=== PATIENT | female | born 1980 | race African-American/Black ===

== ENCOUNTER 2019-10-09 10:59 | Emergency (ER) | payer OTHER, BC, SELFPAY ==
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
[2019-10-09 11:09] VITALS: BP 146/102; PULSE 97; RESP 18; TEMP 36.7; O2SAT 100
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
[2019-10-09] MEDS: CYCLOBENZAPRINE HCL 10 MG TABLET PO (14:26)
[2019-10-09] MEDS: KETOROLAC (*BKC) 60 MG/2 ML VIAL IM (14:26)
== END 2019-10-09 14:35 | disposition home or self-care (01) ==
PROVIDERS: Emergency Provider Nurse Practitioner
DX: S66.912A Strain of unspecified muscle, fascia and tendon at wrist and hand level, left hand, initial encounter (principal); S16.1XXA Strain of muscle, fascia and tendon at neck level, initial encounter; S39.012A Strain of muscle, fascia and tendon of lower back, initial encounter; V49.50XA Passenger injured in collision with unspecified motor vehicles in traffic accident, initial encounter
CPT/HCPCS: 72040; 72100; 72170; 73110; 96372; 99284; A9270; J1885

== ENCOUNTER 2021-01-12 23:29 | Emergency (ER) | payer BC, SELFPAY ==
[2021-01-13 00:03] VITALS: BP 148/106; PULSE 89; RESP 18; TEMP 37.7; O2SAT 100
--- NOTE | 2021-01-13 02:56 | ED.SKABFB ---
HPI - Skin/Abscess/Foreign Bdy General Chief complaint: Skin/Abscess/Foreign Body Stated complaint: tampon stuck in me Time Seen by Provider: 01/13/21 02:10 Source: patient and RN notes reviewed Mode of arrival: ambulatory Limitations: no limitations History of Present Illness HPI narrative: This is a 40 year old female who presents for evaluation of possible retained tampon. PAtient reports she developed right lower abdominal pain yesterday. She noticed foul vaginal odor. She reports she felt what seemed to be a tampon in her vagina . She denies vaginal discharge or fever. She reports chills and nausea. Related Data Home Medications Medication Instructions Recorded Confirmed cetirizine [Zyrtec] 10 mg PO DAILY 10/09/19 Allergies Allergy/AdvReac Type Severity Reaction Status Date / Time iodine Allergy Unknown UNKNOWN Verified 07/22/18 08:44 Shrimp Allergy Unknown Uncoded 07/22/18 08:44 Review of Systems Review of Systems: All systems reviewed & are unremarkable except as noted in HPI and below Constitutional: Constitutional: Denies chills, Denies fever(s) and Reports weakness Gastrointestinal: Gastrointestinal: Reports abdominal pain, Denies diarrhea, Reports nausea and Denies vomiting Genitourinary: Genitourinary: Denies hematuria and Denies vaginal discharge Musculoskeletal: Musculoskeletal: Denies back pain PMF Past Medical History Medical History (Updated 01/13/21 @ 08:46 by Lee Ann Davalos MD) Fibroid, uterine Surgical History Surgical History (Updated 01/13/21 @ 02:57 by Lee Ann Davalos MD) H/O myomectomy Social History Social History (Updated 01/13/21 @ 02:57 by Lee Ann Davalos MD) Smoking status: Never smoker Gender identity (if verbalized by the patient): Female Exam Const: General: no acute distress and alert Orientation/consciousness: patient oriented x3 Eyes: EOM: EOMs intact bilaterally Resp: Effort & Inspection: normal respiratory effort and no retractions Auscultation: clear to auscultation bilaterally Cardio: Rate: regular rate Rhythm: regular rhythm GI: GI Palp: Yes Soft to palpation, Yes Tenderness to palpation present (GI) (RLQ), Yes Guarding due to palpation present (GI) and No Rigid due to palpation Auscultation: normal bowel sounds : Other: no foreign body. No discharge Skin: General skin exam: normal color Rashes: no rashes Neuro: General: patient oriented x3, moves all extremities and CN's II-XI intact bilaterally Course Reevaluation(s) Reevaluation #1: Patient is refusing to have labs drawn. I discussed that she is having significant amount of right lower abdominal tenderness and she needs to have evaluated to rule out surgical issue like appendicitis. I discussed that if this is not diagnosed early it can lead to shock , , complicated surgery or health. She states she has to find someone to take care of her kids. I stressed that she needs to be evaluated. She still wants to leave AMA. She undertands the risk . Date: 01/13/21 Time: 03:00 Vital Signs Vital signs: Vital Signs Temperature 99.8 F H 01/13/21 00:03 Pulse Rate 89 01/13/21 00:03 Respiratory Rate 18 01/13/21 00:03 Blood Pressure 148/106 H 01/13/21 00:03 Pulse Oximetry 100 01/13/21 00:03 Temperature 98.6 F 01/13/21 02:57 Pulse Rate 78 01/13/21 02:57 Respiratory Rate 18 01/13/21 02:57 Blood Pressure 126/78 01/13/21 02:57 Pulse Oximetry 100 01/13/21 02:57 MDM - Skin/Abscess/Foreign Bdy Lab Data Labs: Lab Results 01/13/21 01/13/21 01/13/21 Range/Units 02:58 03:00 03:00 Urine Color Yellow (Yellow) Urine Appearance Clear (Clear) Urine pH 6.0 (5.0-9.0) Ur Specific [place] 1.028 (1.001-1.035) Urine Protein Negative (Negative) mg/dL Urine Glucose (UA) Negative (Negative) mg/dL Urine Ketones Negative (Negative) mg/dL Ur Blood (Man) Negative (Negative) Urine Nitrate Neg
[2021-01-13 02:57] VITALS: BP 126/78; PULSE 78; RESP 18; TEMP 37; O2SAT 100
[2021-01-13 03:17] LABS: Add Urine Microscopic? YES; Appearance Urine Clear (Clear); Bacteria Urine Trace /hpf; Bilirubin Urine Negative (Negative); Blood Urine Negative (Negative); Color Urine Yellow (Yellow); Glucose Urine UA Negative (Negative); Ketones Urine Negative (Negative); Leukocyte Esterase Ur Trace LEU/UL (Negative); Mucus Urine Heavy /lpf; Nitrate Urine Negative (Negative); Protein Urine Negative (Negative); RBC Urine 0-2 /hpf (0-2); Specific Grav Ur 1.028 (1.001-1.035); Squamous Epithelial Cell Urine Occasional /hpf (Few); WBC Urine 0-3 /hpf
--- NOTE | 2021-02-16 20:47 | PC.NURSE ---
LATE ENTRY This note is being entered to document information to the patient's record. The following information was omitted on [02/16/2021], by [aime Hahn RN]. Straight cath was not done on this pt. Pt used a hat to urinate in. Pelvic exam was done by Dr horta.
== END 2021-01-13 03:07 | disposition left against medical advice (07) ==
LOC: ANHED 01-13 02:15
PROVIDERS: Emergency Provider General Practice; PCP Obstetrics & Gynecology
DX: R10.31 Right lower quadrant pain (principal)
CPT/HCPCS: 81001; 87070; 87491; 87591; 87808; 99281; 99284

== ENCOUNTER 2023-01-28 09:16 | Emergency (ER) | payer BC, SELFPAY ==
[2023-01-28] VITALS (22 sets, daily range): BP systolic 118–139; BP diastolic 74–101; PULSE 59–87; RESP 4–21; TEMP 36.4; O2SAT 100
--- NOTE | ~2023-01-28 | US_ITS ---
EXAMINATION: US pelvic complete w TV DATE: 01/28/2023 12:25 INDICATION: Left lower quadrant abdominal pain. TECHNIQUE: Multiple transabdominal and transvaginal sonographic images of the pelvis were obtained. COMPARISON: CT abdomen and pelvis 11/21/2015 FINDINGS: TRANSABDOMINAL ULTRASOUND: The uterus measures 9.5 x 4.7 x 5.5 cm. There is no free fluid in the pelvis. TRANSVAGINAL ULTRASOUND: The endometrial complex measures 3 mm in thickness. There is a 9 mm intramural fibroid. The right ova ry is not visualized. The left ovary measures 3.5 x 2.0 x 3.0 cm. There is normal vascular flow in le ft ovary. IMPRESSION: 1. Small uterine fibroid. Reviewed, dictated and finalized at location A. IMPRESSION: 1. Small uterine fibroid.
--- NOTE | 2023-01-28 09:39 | ECG_ITS ---
Measurements Intervals [place] Rate: 67 P: 64 ND: 187 QRS: 50 QRSD: 80 T: 36 QT: 411 QTc: 437 Interpretive Statements SINUS RHYTHM NORMAL ECG NO PREVIOUS ECG AVAILABLE FOR COMPARISON Electronically Signed On 01-28-2023 11:33:33 CDT by Brijesh San M.D.
--- NOTE | 2023-01-28 09:39 | ED.ABDPAIN ---
HPI - Abdominal Pain General Chief Complaint: Abdominal Pain Stated Complaint: lower abd pain, dizzy Time Seen by Provider: 01/28/23 09:21 Source: patient Mode of arrival: ambulatory Limitations: no limitations History of Present Illness HPI narrative: Patient is a 42-year-old female who presents to the ED with multiple complaints. Patient reports she has been feeling dizzy and lightheaded intermittently over the last several days. Occurs when she is sitting still, but also when changing positions. Occasionally feels like the room is spinning. She states she was sent home from work last night due to her dizziness and was told she could not return until she had a medical clearance note. She reports having persistent vaginal bleeding for the last 3 weeks, which is abnormal for her typical cycles. She does note history of uterine fibroids which have bled in the past. She is scheduled to see her [employer] [employer] next Thursday. Patient also reports having pain throughout her left lower abdomen for the last 4 weeks. She has been taking Aleve without much relief. Reports occasional nausea and urinary frequency, denies vomiting, dysuria, fevers, diarrhea, constipation, rectal bleeding, headache, vision changes, chest pain, shortness of breath. Related Data Home Medications Medication Instructions Recorded Confirmed cetirizine 10 mg capsule (Zyrtec) 10 mg PO DAILY 10/09/19 Allergies Allergy/AdvReac Type Severity Reaction Status Date / Time iodine Allergy Unknown UNKNOWN Verified 01/28/23 09:30 Shrimp Allergy Unknown Anaphylactic Uncoded 01/28/23 09:30 Shock Review of Systems Review of Systems: CONSTITUTIONAL: Denies fever, chills, or sweats. EYES: Denies visual changes. CARDIOVASCULAR: Denies chest pain. RESPIRATORY: Denies dyspnea. GASTROINTESTINAL: See HPI. GENITOURINARY: See HPI. SKIN: Denies rash or itching. MUSCULOSKELETAL: Denies back pain, joint pain, or myalgia. NEUROLOGIC: See HPI. All systems reviewed & are unremarkable except as noted in HPI and below PMFSH Past Medical History Medical History Fibroid, uterine Surgical History Surgical History H/O myomectomy Social History Social History (Updated 01/13/21 @ 02:57 by Lee Ann Davalos MD) Smoking status: Never smoker Gender identity (if verbalized by the patient): Female Exam Narrative: GENERAL: Well appearing, well-nourished, non-toxic, in no acute distress. HEAD: Normocephalic, atraumatic. EYES: PERRLA/EOMI, conjunctiva clear. ENT: NECK: Supple. No adenopathy, no masses. RESPIRATORY: Airway patent, respirations nonlabored. Clear to auscultation bilaterally, no rales, rhonchi, wheezing. CARDIOVASCULAR: Regular rate and rhythm without murmurs, rubs, or gallops. Peripheral pulses 2+ and equal bilaterally. ABDOMINAL: Soft, mild tenderness throughout L lower abdomen, no rebound, nondistended, no hepatosplenomegaly. Normoactive BS. PELVIC: Normal external genitalia. Quarter sized clot noted coming from cervix. Removed easily. No further bleeding noted. No hemorrhage or pooling of fluid. Cervix otherwise appears unremarkable. MUSCULOSKELETAL: Moves all extremities. Strength/ROM intact without gross deformities. SKIN: Warm, dry, normal color. No rashes. NEURO: A&O X3. Speech clear. Cranial nerves II-XII grossly intact. Steady gait. No ataxic movements. No focal neurological deficits. Mild dizziness elicited with sitting upright in ED bed. PSYCHIATRIC: Appropriate mood and affect. Normal interaction. Course Vital Signs Vital signs: Vital Signs Temperature 97.6 F 01/28/23 09:21 Pulse Rate 79 01/28/23 09:21 Respiratory Rate 12 01/28/23 09:21 Blood Pressure 127/95 H 01/28/23 09:21 Pulse Oximetry 100 01/28/23 09:21 Oxygen Delivery Room Air 01/28/23 09:21 Temperature 97.6 F 01/28/23 09:21 Pulse
[2023-01-28 10:11] LABS: Basophils Absolute Auto 0.1 K/mm3 (0.0-0.1); Basophils Percent Auto 0.9 % (0.2-1.2); Eosinophils Absolute Auto 0.4 K/mm3 (0-0.3); Eosinophils Percent Auto 5.3 % (0-4.4); Hematocrit 32.5 % (37.0-47.0); Hemoglobin 9.1 g/dL (12.0-15.0); Immature Granulocyte Absolute 0.01 K/mm3 (0.00-0.031); Immature Granulocyte Percent A 0.2 % (0-0.5); Immature Platelet Fraction Pct 8.9 % (0.9-11.2); Lymphocytes Absolute Auto 2.05 K/mm3 (0.9-3.2); Lymphocytes Percent Auto 30.8 % (18.3-44.2); Mean Corpuscular Hemoglobin 19.7 pg (26-34); Mean Corpuscular Volume 70.2 fl (80-100); Mean Platelet Volume 10.9 fl (7.4-10.4); Monocytes Absolute Auto 0.7 K/mm3 (0.1-0.6); Monocytes Percent Auto 10.2 % (2.6-8.5); Neutrophils Absolute Auto 3.5 K/mm3 (1.3-6.7); Neutrophils Percent Auto 52.6 % (45.5-73.1); Platelet Count Result 266 k/mm3 (150-375); Red Blood Count 4.63 M/mm3 (4.2-5.4); Red Cell Distribution Width 17.8 % (11.5-14.5); White Blood Count 6.7 K/mm3 (4.5-10.0)
[2023-01-28] MEDS: MECLIZINE HCL 25 MG TABLET PO (10:12)
[2023-01-28] MEDS: SODIUM CHLORIDE 0.9% IV 1,000 ML 999 ML IV CONT (10:12)
[2023-01-28 10:20] LABS: Alanine Aminotransferase 18 U/L (6-35); Albumin Level 4.3 g/dL (3.5-5.1); Alkaline Phosphatase 55 U/L (38-126); Anion Gap 4 mmol/L (8-16); Aspartate Amino Transferase 16 U/L (14-36); Bilirubin,Total 0.3 mg/dL (0.2-1.3); Blood Urea Nitrogen 16 mg/dL (7-17); Calcium 8.9 mg/dL (8.4-10.2); Carbon Dioxide 28 mmol/L (22-30); Chloride 105 mmol/L (98-107); Estimated CRCL calculation 102 ml/min; Estimated Glomerular Filt Rate > 60; Glucose 111 mg/dL (65-110); Sodium 137 mmol/L (137-145)
[2023-01-28 10:44] LABS: Anisocytosis 1+ (NORMAL); Microcytosis 2+ (NORMAL); Platelet Estimate Adequate (Adequate); Schistocytes None Seen (NORMAL)
[2023-01-28 10:45] LABS: Ovalocytes 1+ (NORMAL)
[2023-01-28 10:46] LABS: Appearance Urine Turbid (Clear); Specific Grav Ur 1.027 (1.001-1.035)
[2023-01-28 10:49] LABS: Color Urine Red (Yellow)
[2023-01-28 10:59] LABS: Add Urine Microscopic? NO
[2023-01-28] MEDS: ACETAMINOPHEN 500 MG TABLET 1000 MG PO (11:41)
[2023-01-28] MEDS: KETOROLAC 30 MG/ML VIAL (*BKC) IV PUSH (13:29)
[2023-01-28 14:41] LABS: Appearance Urine Clear (Clear); Bacteria Urine None Seen /hpf; Bilirubin Urine Negative (Negative); Blood Urine 3+ (Negative); Color Urine Yellow (Yellow); Glucose Urine UA Negative (Negative); Ketones Urine Negative (Negative); Leukocyte Esterase Ur Negative LEU/UL (Negative); Need Manual Microscopic Reviewed; Nitrate Urine Negative (Negative); Non Pathogenic Casts 0-2; Protein Urine Negative (Negative); RBC Urine 21-50 /hpf (0-2); Specific Grav Ur 1.013 (1.001-1.035); Squamous Epithelial Cell Urine None seen /hpf (Few); Urobilinogen Urine 0.2 mg/dL (<2.0); WBC Urine 0-5 /hpf
[2023-01-28 14:50] LABS: Add Urine Microscopic? YES
== END 2023-01-28 15:12 | disposition home or self-care (01) ==
PROVIDERS: Emergency Provider Physician Assistant; PCP Obstetrics & Gynecology
DX: R42 Dizziness and giddiness (principal); N93.8 Other specified abnormal uterine and vaginal bleeding; R10.32 Left lower quadrant pain; D25.9 Leiomyoma of uterus, unspecified
CPT/HCPCS: 36415; 76830; 76856; 80053; 81001; 81003; 81025; 85025; 85055; 93005; 96361; 96374; 99284; A9270; J1885; J7030

== ENCOUNTER 2023-05-05 12:10 | Emergency (ER) | payer BC, SELFPAY ==
[2023-05-05 12:31] VITALS: BP 145/92; PULSE 97; RESP 15; TEMP 36.7; O2SAT 100
--- NOTE | 2023-05-05 16:23 | ED.GENADULT ---
HPI - General Adult General Chief complaint: Extremity Injury, Upper Stated complaint: right arm pain/ numbness for 3 weeks Time Seen by Provider: 05/05/23 15:30 Source: patient Limitations: no limitations History of Present Illness HPI narrative: Patient is a 43-year-old female present to the emergency department complaining right neck pain that radiates down her right upper extremity for the past approximately 3 weeks that has not gone away prompting her to seek further evaluation. Patient describes the pain as jolts and gets worse with bending her head to the right and feels better when she elevates her arm above her head. Patient denies any recent injuries or recent illness. Patient has been trying aspirin and took a dose of a muscle relaxer as well in addition to Tylenol for the pain which may be helping a little bit but has not gone away. Patient admits to having seen a [facility] on Thursday and was told she likely had slept on it wrong. Patient denies any imaging being performed. Patient denies any history of this in the past. Patient states that she is right-handed. Patient denies chest pain, shortness of breath, headache, numbness, weakness, paresthesias, abdominal pain, urinary incontinence, stool incontinence, history of cancer, fever, weight loss. Related Data Home Medications Medication Instructions Recorded Confirmed cetirizine 10 mg capsule (Zyrtec) 10 mg PO DAILY 10/09/19 Allergies Allergy/AdvReac Type Severity Reaction Status Date / Time iodine Allergy Unknown UNKNOWN Verified 05/05/23 14:15 Shrimp Allergy Unknown Anaphylactic Uncoded 05/05/23 14:15 Shock Review of Systems Review of Systems: A 10 system review of systems was completed on the patient and is negative except for what is stated in the HPI. Nursing and ancillary documentation was reviewed. [facility] Past Medical History Medical History Fibroid, uterine Surgical History Surgical History H/O myomectomy Social History Social History (Updated 01/13/21 @ 02:57 by Lee Ann Davalos MD) Smoking status: Never smoker Gender identity (if verbalized by the patient): Female Comments At time of signature, I have reviewed and agree with nursing past medical, surgical, social and family history unless otherwise noted. Please see the nursing chart for further information. There is no relevant family history pertinent to the presenting complaint. Exam Narrative: CONST: No acute distress. Well nourished. HENMT: Head is normocephalic and atraumatic. Moist mucous membranes. No posterior oropharynx erythema. EYES: No conjunctival icterus, injection, or pallor. PERRL. NECK: No meningeal signs. Mild muscle spasms of the right scalene muscles. No carotid bruits bilaterally. RESP: Able to speak in full sentences. Normal respiratory effort. CTAB. CARDIO: Regular rate. Regular rhythm. 2+ DP and radial pulses bilaterally. GI: Nondistended. No tenderness to palpation. Soft. : No CVA tenderness to palpation. SKIN: No rashes or lesions noted on exposed skin. NEURO: Oriented x3. Moves all extremities. Positive Spurling?s test on the right reproducing patient?s symptoms. Sensation intact to light touch throughout all extremities. EXTREM/BACK/MSK: No pedal edema. No midline vertebral tenderness to palpation or step-offs throughout the entire spine. Motor strength is 5/5 in the right upper extremity. Active range of motion intact throughout entire RUE. PSYCH: Normal affect. Course Vital Signs Vital signs: Vital Signs Temperature 98.0 F 05/05/23 12:31 Pulse Rate 97 05/05/23 12:31 Respiratory Rate 15 05/05/23 12:31 Blood Pressure 145/92 H 05/05/23 12:31 Pulse Oximetry 100 05/05/23 12:31 Temperature 98.0 F 05/05/23 12:31 Pulse Rate 97 05/05/23 12:31 Respiratory Rate 15 05/05/23 12:31 Bl
[2023-05-05] MEDS: predniSONE 20 MG TABLET 60 MG PO (16:39)
[2023-05-05] MEDS: diazePAM (*CRX) 5 MG TABLET PO (16:40)
[2023-05-05] MEDS: KETOROLAC 30 MG/ML VIAL (*BKC) 15 MG IM (16:40)
== END 2023-05-05 16:57 | disposition home or self-care (01) ==
PROVIDERS: Emergency Provider Student in an Organized Health Care Education/Training Program; PCP Obstetrics & Gynecology
DX: M54.12 Radiculopathy, cervical region (principal)
CPT/HCPCS: 96372; 99283; A9270; J1885; J7512

== ENCOUNTER 2024-05-22 15:13 | Emergency (ER) | payer SELFPAY ==
--- NOTE | ~2024-05-22 | XR_ITS ---
EXAMINATION: XR chest 1V portable Exam Date/Time: 05/22/2024 18:15 DOCTOR NATUROPATHIC HISTORY: flu like symptoms X 6 DAYS Comparison: 10/24/2003, images only. RESULT: Lines, tubes, and devices: None. Lungs and pleura: Clear. Cardiomediastinal silhouette: Stable. Other: No acute osseous or upper abdominal finding. IMPRESSION: No acute cardiopulmonary process. Reviewed, dictated and finalized at location K. OR NATUROPATHIC
[2024-05-22 15:20] VITALS: BP 132/85; PULSE 119; RESP 20; TEMP 36.8; O2SAT 100
--- NOTE | 2024-05-22 17:09 | ED_ITS ---
HPI - General Adult General Chief complaint: Headache Stated complaint: SPENCE Time Seen by Provider: 05/22/24 16:43 History of Present Illness HPI narrative: This is a 44-year-old female presenting with flu-like symptoms. Patient said starting 6 days ago she is experiencing fevers, chills, body aches, headache, loss of appetite, constipation and odorous urine. No chest pain or difficulty breathing. No sick contacts at home. Related Data Home Medications Medication Instructions Recorded Confirmed cetirizine 10 mg capsule (Zyrtec) 10 mg PO DAILY 10/09/19 Allergies Allergy/AdvReac Type Severity Reaction Status Date / Time iodine Allergy Unknown UNKNOWN Verified 05/05/23 14:15 Shrimp Allergy Unknown Anaphylactic Uncoded 05/05/23 14:15 Shock PMFSH Past Medical History Medical History Fibroid, uterine Surgical History Surgical History H/O myomectomy Social History Social History Smoking status: Never smoker Gender identity (if verbalized by the patient): Female Exam Narrative: APPEARANCE: Patient is laying prone on the bed Head: atraumatic. EYES: EOMI, NOSE: Atraumatic NECK: Trachea midline RESPIRATORY: No increased rate of breathing, clear to auscultation CARDIOVASCULAR: RRR, no peripheral edema ABDOMINAL: Non-distended soft nontender no guarding or rebound, no CVA tenderness MUSCULOSKELETAl: No obvious deformities NEURO: Alert. Moving 4/4 extremities SKIN:: Warm, dry. Normal color PSYCHIATRIC: Normal affect Course Vital Signs Vital signs: Vital Signs Temperature 98.2 F 05/22/24 15:20 Pulse Rate 119 H 05/22/24 15:20 Respiratory Rate 20 05/22/24 15:20 Blood Pressure 132/85 05/22/24 15:20 Pulse Oximetry 100 05/22/24 15:20 Temperature 98.2 F 05/22/24 15:20 Pulse Rate 119 H 05/22/24 15:20 Respiratory Rate 20 05/22/24 15:20 Blood Pressure 132/85 05/22/24 15:20 Pulse Oximetry 100 05/22/24 15:20 Medical Decision Making MDM Narrative Medical decision making narrative: -Course: This is a 44-year-old female presenting with flu-like symptoms and dysuria. Laboratory studies urinalysis and viral swabs obtained. White count mildly elevated. Metabolic panel significant for hypokalemia which is repleted. Urine is indicative infection with white blood cells, leuk esterase and nitrites. Patient given fluid resuscitation. Tachycardia resolved with treatment. She will be given a dose of IV ceftriaxone to cover UTI/Pyelo. Patient is young and healthy is a good candidate for outpatient treatment. Discussed admission versus discharge patient is comfortable w/ outpatient management. She promised to come back if her condition worsens or she is not improving. She will be treated with cefdinir and given return precautions. Primary care follow-up. -DDX includes but is not limited to: Viral syndrome, pneumonia, UTI/pyelo -Independent interpretation of studies: White count 12.1. Metabolic panel significant for hypokalemia which is repleted. Urine indicative of infection. -Interventions: 2 L normal saline, Tylenol, toradol, Ceftriaxone. -Shared decision making / Disposition: Discharge -RX cefdinir, Motrin, Tylenol Vital Signs Vital Signs: Vital Signs Temperature 98.2 F 05/22/24 15:20 Pulse Rate 119 H 05/22/24 15:20 Respiratory Rate 20 05/22/24 15:20 Blood Pressure 132/85 05/22/24 15:20 Pulse Oximetry 100 05/22/24 15:20 Temperature 98.2 F 05/22/24 15:20 Pulse Rate 119 H 05/22/24 15:20 Respiratory Rate 20 05/22/24 15:20 Blood Pressure 132/85 05/22/24 15:20 Pulse Oximetry 100 05/22/24 15:20 Lab Data 05/22/24 18:06 05/22/24 18:06 Labs: Lab Results 05/22/24 05/22/24 Range/Units 17:59 18:06 WBC 12.1 H (4.5-10.0) K/mm3 RBC 4.67 (4.2-5.4) M/mm3 Hgb 9.5 L (12.0-15.0) g/dL Hct 32.5 L (37.0-47.0) % MCV 69.6 L (80-100) fl MCH 20.3 L (26-34) pg MCHC 29.2 L (32-36) g/dl RDW 16.8 H (11.5-14.5) % Plt Count 233 (150-375) k/mm3 MPV 11.5 H (7.4-10.4) fl Immature Gran % (Auto) 0.5 (0-0.5) % Neut % (Auto) 69.8 (45.5-73.1) % Lymph % (Auto) 13.6 L (18.3-44.2) % [place] % (Auto) 14.0 H (2.6-8.5) % Eos % (Auto) 1.8 (0-4.4) % Baso % (Auto) 0.3 (0.2-1.2) % Lymph # (Auto) 1.65 (0.9-3.2) K/mm3 [place] # (Auto) 1.7 H (0.1-0.6) K/mm3 Eos # (Auto) 0.2 (0-0.3) K/mm3 Baso # (Auto) 0.0 (0.0-0.1) K/mm3 Abs Immat Gran (auto) 0.06 H (0.00-0.031) K/mm3 Absolute Neuts (auto) 8.5 H (1.3-6.7) K/mm3 Absolute Nucleated RBC 0.000 (0.0-0.012) K/mm3 Nucleated RBC % 0.0 (0.0-0.2) % Platelet Estimate Adequate (Adequate) % Immature Plt Fraction 7.2 (0.9-11.2) % Hypochromasia 1+ Microcytosis 1+ (NORMAL) Ovalocytes 1+ Schistocytes None seen Sodium 136 L (137-145) mmol/L Potassium 3.3 L (3.4-5.0) mmol/L Chloride 99 (98-107) mmol/L Carbon Dioxide 30 (22-30) mmol/L Anion Gap 7 (4-12) mmol/L BUN 10 D (7-17) mg/dL Creatinine 0.60 L (0.7-1.0) mg/dL Estim Creat Clear Calc 100 ml/min Estimated GFR > 60 (59 - ) Glucose 90 (65-110) mg/dL Calcium 8.9 (8.4-10.2) mg/dL Total Bilirubin 0.6 (0.2-1.3) mg/dL AST 15 (14-36) U/L ALT 18 (6-35) U/L Alkaline Phosphatase 87 (38-126) U/L Total Protein 8.0 (6.3-8.2) g/dL Albumin 4.1 (3.5-5.1) g/dL Urine Color Yellow (Yellow) Urine Appearance Turbid H (Clear) Urine pH 6.5 (5.0-9.0) Ur Specific [place] 1.021 (1.001-1.035) Urine Protein 2+ H (Negative) mg/dL Urine Glucose (UA) Negative (Negative) mg/dL Urine Ketones 1+ H (Negative) mg/dL Ur Blood (Man) Negative (Negative) Urine Nitrate Positive H (Negative) Urine Bilirubin Negative (Negative) Urine Urobilinogen 2.0 H (<2.0) mg/dL Leukocyte Esterase Rfl 1+ H (Negative) ANN MARIE/UL Urine RBC 3-5 H (0-2) /hpf Urine WBC 21-50 H (0-3) /hpf Ur Squamous Epith Cells Few (Few) /hpf Urine Bacteria 4+ /hpf Urine Casts 3-5 Urine Mucus Present /lpf POC Urine HCG, Qual Negative (Negative) Urine Opiates Screen Negative (Negative) Urine Methadone Screen Negative (Negative) Ur Barbiturates Screen Negative (Negative) Ur Phencyclidine Scrn Negative (Negative) Ur Amphetamine Screen Negative (Negative) U Benzodiazepines Scrn Negative (Negative) Urine Cocaine Screen Negative (Negative) U Cannabinoids Screen Positive A (Negative) Influenza A (RT-PCR) Negative (Negative) Influenza B (RT-PCR) Negative (Negative) RSV (RT-PCR) Negative (Negative) SARS-CoV-2 RNA (RT-PCR) Negative (Negative) Discharge Plan Discharge Clinical Impression: Pyelonephritis Patient Disposition: Home, Self-Care Condition: Stable Instructions: Antibiotic Form, Kidney Infection (ED) Additional Instructions: You were seen in the emergency department for a kidney infection. Please take cefdinir twice daily for 10 days. Please use Motrin Tylenol for body aches and fevers. If you develop worsening fevers, flank pain, or your condition worsens please return to the ER immediately for re-evaluation. Prescriptions: New cefdinir 300 mg capsule 300 mg PO Q12H Qty: 20 0RF ibuprofen 800 mg tablet 800 mg PO TID PRN (Reason: pain) 7 Days Qty: 21 0RF acetaminophen 500 mg tablet 1,000 mg PO TID PRN (Reason: tania) 7 Days Qty: 42 0RF No Action meclizine 25 mg tablet 25 mg PO TID PRN (Reason: dizziness) Qty: 20 0RF methocarbamol 1,000 mg tablet 1,000 mg PO TID 10 Days Qty: 30 0RF prednisone 20 mg tablet 40 mg PO DAILY 5 Days Qty: 10 0RF ibuprofen 400 mg tablet 400 mg PO Q6H PRN (Reason: pain) Qty: 30 0RF Zyrtec 10 mg Capsule 10 mg PO DAILY ibuprofen 800 mg tablet 800 mg PO TID PRN (Reason: pain) Qty: 20 0RF cyclobenzaprine 10 mg tablet 10 mg PO TID PRN (Reason: muscle spasm) Qty: 15 0RF Follow-up/Referrals: PHYSICIAN,FIRE PREVENTION CAPTAIN [Primary Care Provider] -
[2024-05-22 18:00] LABS: BEDSIDEPREGUCG Negative (Negative)
[2024-05-22] MEDS: SODIUM CHLORIDE 0.9% IV 2,000 ML 999 ML IV CONT (18:03)
[2024-05-22] MEDS: ACETAMINOPHEN 500 MG TABLET 1000 MG PO (18:04)
[2024-05-22] MEDS: KETOROLAC 15 MG/ML VIAL (*BKC) IV PUSH (18:04)
[2024-05-22 18:17] LABS: Basophils Percent Auto 0.3 % (0.2-1.2); Eosinophils Absolute Auto 0.2 K/mm3 (0-0.3); Eosinophils Percent Auto 1.8 % (0-4.4); Hematocrit 32.5 % (37.0-47.0); Hemoglobin 9.5 g/dL (12.0-15.0); Immature Granulocyte Absolute 0.06 K/mm3 (0.00-0.031); Immature Granulocyte Percent A 0.5 % (0-0.5); Immature Platelet Fraction Pct 7.2 % (0.9-11.2); Lymphocytes Absolute Auto 1.65 K/mm3 (0.9-3.2); Lymphocytes Percent Auto 13.6 % (18.3-44.2); Mean Corpuscular HGB Conc 29.2 g/dl (32-36); Mean Corpuscular Hemoglobin 20.3 pg (26-34); Mean Corpuscular Volume 69.6 fl (80-100); Mean Platelet Volume 11.5 fl (7.4-10.4); Monocytes Absolute Auto 1.7 K/mm3 (0.1-0.6); Neutrophils Absolute Auto 8.5 K/mm3 (1.3-6.7); Neutrophils Percent Auto 69.8 % (45.5-73.1); Platelet Count Result 233 k/mm3 (150-375); Red Blood Count 4.67 M/mm3 (4.2-5.4); Red Cell Distribution Width 16.8 % (11.5-14.5); White Blood Count 12.1 K/mm3 (4.5-10.0)
[2024-05-22 18:27] LABS: Alanine Aminotransferase 18 U/L (6-35); Albumin Level 4.1 g/dL (3.5-5.1); Alkaline Phosphatase 87 U/L (38-126); Anion Gap 7 mmol/L (4-12); Aspartate Amino Transferase 15 U/L (14-36); Bilirubin,Total 0.6 mg/dL (0.2-1.3); Blood Urea Nitrogen 10 mg/dL (7-17); Calcium 8.9 mg/dL (8.4-10.2); Carbon Dioxide 30 mmol/L (22-30); Chloride 99 mmol/L (98-107); Estimated CRCL calculation 100 ml/min; Estimated Glomerular Filt Rate > 60; Glucose 90 mg/dL (65-110); Potassium 3.3 mmol/L (3.4-5.0); Sodium 136 mmol/L (137-145)
[2024-05-22 18:31] LABS: Add Urine Microscopic? YES; Appearance Urine Turbid (Clear); Bacteria Urine 4+ /hpf; Bilirubin Urine Negative (Negative); Blood Urine Negative (Negative); Color Urine Yellow (Yellow); Glucose Urine UA Negative (Negative); Ketones Urine 1+ mg/dL (Negative); Leukocyte Esterase Ur 1+ LEU/UL (Negative); Mucus Urine Present /lpf; Nitrate Urine Positive (Negative); Protein Urine 2+ mg/dL (Negative); Specific Grav Ur 1.021 (1.001-1.035); Squamous Epithelial Cell Urine Few /hpf (Few); WBC Urine 21-50 /hpf (0-3); pH Urine 6.5 (5.0-9.0)
[2024-05-22 18:37] LABS: Hypochromasia 1+; Microcytosis 1+ (NORMAL); Ovalocytes 1+; Platelet Estimate Adequate (Adequate); Schistocytes None Seen
[2024-05-22 18:54] LABS: Influenza A QL RT-PCR Negative (Negative); Influenza B QL RT-PCR Negative (Negative); RSV RNA, RT-PCR Negative (Negative); SARS-CoV-2 RNA PCR Negative (Negative)
[2024-05-22 18:57] LABS: Amphetamine Screen Urine Negative (Negative); Barbiturate Screen Urine Negative (Negative); Benzodiazepines Screen Urine Negative (Negative); Cannabinoid Screen Urine Positive (Negative); Cocaine Screen Urine Negative (Negative); Methadone Screen Urine Negative (Negative); Opiate Screen Urine Negative (Negative); Phencyclidine Screen Urine Negative (Negative)
[2024-05-22 19:25] VITALS: BP 115/72; PULSE 89; RESP 15; O2SAT 100
[2024-05-22 19:33] VITALS: BP 120/72; PULSE 85; RESP 18; TEMP 36.4; O2SAT 100
[2024-05-22 19:44] VITALS: BP 120/77; PULSE 85; RESP 18; O2SAT 100
== END 2024-05-22 19:44 | disposition home or self-care (01) ==
PROVIDERS: Emergency Provider Emergency Medicine
DX: N12 Tubulo-interstitial nephritis, not specified as acute or chronic (principal); Z20.822 Contact with and (suspected) exposure to COVID-19
CPT/HCPCS: 36415; 71045; 80053; 80307; 81001; 81025; 85025; 85055; 87086; 87186; 87637; 96361; 96365; 96375; 99284; A9270; J0696; J1885; J7030

== ENCOUNTER 2024-07-01 14:36 | Emergency (ER) | payer SELFPAY ==
[2024-07-01 14:45] VITALS: BP 137/87; PULSE 89; RESP 16; TEMP 36.8; O2SAT 99
--- NOTE | 2024-07-01 15:24 | PC.NURSE ---
1523 Patient decided to leave-left before seeing provider
== END 2024-07-01 16:22 | disposition left against medical advice (07) ==
DX: M79.605 Pain in left leg (principal)
CPT/HCPCS: 99199

== ENCOUNTER 2024-07-04 13:16 | Emergency (ER) | payer SELFPAY ==
--- NOTE | ~2024-07-04 | XR_ITS ---
XR knee LT min 4V Ordering provider: Carol Tabor PA-C History: . pain,pop, left knee, swelling . Comparison: None. FINDINGS: BONES: No acute fracture or dislocation. JOINT SPACES: Normal. SOFT TISSUES: Normal. IMPRESSION: No acute osseous abnormality left knee. Reviewed, dictated and finalized at location A. STANT PROGRAM MANAGER
[2024-07-04 13:41] VITALS: BP 153/93; PULSE 85; RESP 16; TEMP 36.5; O2SAT 99
[2024-07-04 15:19] VITALS: BP 158/94; PULSE 86; RESP 19; TEMP 36.3; O2SAT 100
--- NOTE | 2024-07-04 17:35 | ED.EXTPRO ---
HPI - Extremity Problem General Chief complaint: Extremity Problem,Nontraumatic Stated complaint: left knee pain Time Seen by Provider: 07/04/24 17:01 History of Present Illness HPI Narrative: 44-year-old female presents emergency department for left knee pain for 4 days. Patient states she was spitting out of bed when she twisted her left knee and felt a pop. Since then she has had pain and swelling to the knee. States she came to our ED 3 days ago but left prior to being seen due to wait times. She took naproxen without improvement. Related Data Home Medications ?Medication ?Instructions ?Recorded ?Confirmed ?Last Taken ?Type cetirizine 10 mg capsule (Zyrtec) 10 mg PO DAILY 10/09/19 Unknown History Allergies Allergy/AdvReac Type Severity Reaction Status Date / Time iodine Allergy Unknown UNKNOWN Verified 05/05/23 14:15 Shrimp Allergy Unknown Anaphylactic Uncoded 05/05/23 14:15 Shock Review of Systems Review of Systems: All systems reviewed & are unremarkable except as noted in HPI and below PMFSH Past Medical History Medical History Fibroid, uterine Surgical History Surgical History H/O myomectomy Social History Social History Smoking status: Never smoker Gender identity (if verbalized by the patient): Female Exam Narrative: GENERAL: Well-appearing, well-nourished, and in no acute distress. HEAD: Normocephalic, atraumatic. EYES: EOMI. ENT: Nares clear, no rhinorrhea or epistaxis. Mucous membranes moist. NECK: Supple. CHEST: Clear to auscultation. No respiratory distress. HEART: Regular rate and rhythm. No murmur heard. Normal peripheral pulses. EXTREMITIES: LLE: Minimal swelling overlying the left knee with diffuse tenderness, no varus or valgus laxity, negative anterior posterior drawer. Full active and passive range of motion with increased pain. DP pulse 2 +. Sensation intact. No tenderness remainder of extremity. No overlying warmth or erythema SKIN: Warm, dry, no rash. NEURO: No focal deficits. Alert and oriented x3 Course Vital Signs Vital signs: Vital Signs Temperature 97.7 F 07/04/24 13:41 Pulse Rate 85 07/04/24 13:41 Respiratory Rate 16 07/04/24 13:41 Blood Pressure 153/93 H 07/04/24 13:41 Pulse Oximetry 99 07/04/24 13:41 Oxygen Delivery Room Air 07/04/24 13:41 Temperature 97.3 F L 07/04/24 15:19 Pulse Rate 86 07/04/24 15:19 Respiratory Rate 19 07/04/24 15:19 Blood Pressure 158/94 H 07/04/24 15:19 Pulse Oximetry 100 07/04/24 15:19 Oxygen Delivery Room Air 07/04/24 13:41 MDM - Extremity (Nontraumatic) MDM Narrative Medical decision making narrative: 44-year-old female presents to emergency department for left knee pain for 4 days after twisting it while pivoting out of bed. Reportedly felt a pop and has had pain and swelling since. Vitals of blood pressure, otherwise unremarkable. Exam significant for the above. She is neurovascularly intact. X-ray shows no acute osseous findings. Patient updated on workup. She is placed in a knee immobilizer and provided crutches, prescription for ibuprofen, encouraged RICE, ortho referrel provided. Return precautions discussed. She is agreeable with the plan verbalized understanding. Discharged in stable condition. Discharge Plan Discharge Clinical Impression: Knee sprain Qualifiers: Encounter type: initial encounter Involved ligament of knee: unspecified ligament Laterality: left Qualified Code(s): S83.92XA - Sprain of unspecified site of left knee, initial encounter Patient Disposition: Home, Self-Care Condition: Stable Instructions: Antibiotic Form, Knee Sprain (DC), Knee Immobilizer (ED) Additional Instructions: Your evaluated in the emergency department for knee pain. Her x-ray shows no broken bones. Please wear the knee immobilizer, rest, ice, elevate and compression knee and take ibuprofen as needed for pain as directed. Follow up with Orthopedics if her pain is not improving in 1 week. Return to the emergency department if he develops significantly worsening pain, white or numb foot or other concerning symptoms. Patient Language: Indonesian Prescriptions: New ibuprofen 800 mg tablet 800 mg PO TID PRN (Reason: pain) Qty: 20 0RF No Action meclizine 25 mg tablet 25 mg PO TID PRN (Reason: dizziness) Qty: 20 0RF methocarbamol 1,000 mg tablet 1,000 mg PO TID 10 Days Qty: 30 0RF prednisone 20 mg tablet 40 mg PO DAILY 5 Days Qty: 10 0RF ibuprofen 400 mg tablet 400 mg PO Q6H PRN (Reason: pain) Qty: 30 0RF cefdinir 300 mg capsule 300 mg PO Q12H Qty: 20 0RF ibuprofen 800 mg tablet 800 mg PO TID PRN (Reason: pain) 7 Days Qty: 21 0RF acetaminophen 500 mg tablet 1,000 mg PO TID PRN (Reason: tania) 7 Days Qty: 42 0RF Zyrtec 10 mg Capsule 10 mg PO DAILY ibuprofen 800 mg tablet 800 mg PO TID PRN (Reason: pain) Qty: 20 0RF cyclobenzaprine 10 mg tablet 10 mg PO TID PRN (Reason: muscle spasm) Qty: 15 0RF Follow-up/Referrals: Abner Gustafson MD [Physician] - UNKNOWN,DOCTOR [Primary Care Provider] -
[2024-07-04] MEDS: IBUPROFEN 400 MG TABLET 800 MG PO (17:45)
[2024-07-04 17:59] VITALS: BP 137/84; PULSE 75; RESP 19; O2SAT 100
== END 2024-07-04 18:01 | disposition home or self-care (01) ==
PROVIDERS: Emergency Provider Physician Assistant
DX: S83.92XA Sprain of unspecified site of left knee, initial encounter (principal); X50.1XXA Overexertion from prolonged static or awkward postures, initial encounter
CPT/HCPCS: 73564; 99283; A9270

== ENCOUNTER 2024-12-13 16:25 | Emergency (ER) | payer OTHER, SELFPAY ==
[2024-12-13] VITALS (8 sets, daily range): BP systolic 141–147; BP diastolic 92–100; PULSE 71; RESP 18; TEMP 37.1; O2SAT 100
--- NOTE | ~2024-12-13 | XR_ITS ---
XR knee LT min 4V Ordering provider: Soraya Avalos III, DO History: . dislocated ?? . Comparison: July 04, 2024 FINDINGS: BONES: No acute fracture or dislocation. Slightly medial position of the patella is noted. Clinical c orrelation advised. JOINT SPACES: Normal. SOFT TISSUES: Normal. IMPRESSION: No acute osseous abnormality left knee. Slightly medial position of the patella. Clinical correlation advised. Reviewed, dictated and finalized at location A.
[2024-12-13] MEDS: MORPHINE SULFATE (*CRX) 4 MG/ML INJ IV PUSH (17:07)
[2024-12-13] MEDS: ONDANSETRON INJ 4 MG/2 ML VIAL IV PUSH (17:08)
--- NOTE | 2024-12-13 17:35 | ED_ITS ---
HPI - Extremity Injury (Lower) General Chief Complaint: Extremity Injury, Lower Stated Complaint: dislocated knee Time Seen by Provider: 12/13/24 16:45 History of Present Illness HPI Narrative: Pt states she was squatting down and stood up and felt knee cap dislocate. Pt says she is not able to straighten leg due to pain. Related Data Home Medications ?Medication ?Instructions ?Recorded ?Confirmed ?Last Taken ?Type cetirizine 10 mg capsule (Zyrtec) 10 mg PO DAILY 10/09/19 Unknown History Allergies Allergy/AdvReac Type Severity Reaction Status Date / Time iodine Allergy Unknown UNKNOWN Verified 05/05/23 14:15 Shrimp Allergy Unknown Anaphylactic Uncoded 05/05/23 14:15 Shock Review of Systems Review of Systems: All systems reviewed & are unremarkable except as noted in HPI and below PMFSH Past Medical History Medical History Fibroid, uterine Surgical History Surgical History H/O myomectomy Social History Social History Smoking status: Never smoker Gender identity (if verbalized by the patient): Female Exam Const: General: healthy appearing and no acute distress Nutritional Appearance: well nourished Orientation/consciousness: patient oriented x3 Limitations: no limitations Eyes: EOM: EOMs intact bilaterally Resp: Effort & Inspection: normal respiratory effort Auscultation: clear to auscultation bilaterally Cardio: Rate: regular rate Rhythm: regular rhythm GI: GI Palp: Yes Soft to palpation Skin: General skin exam: normal color Rashes: no rashes Neuro: General: patient oriented x3, moves all extremities, no meningeal signs and no focal motor deficits Speech: normal speech Extrem: Other: tender over patella but no obvious displacement Psych: Mental Status: mental status grossly normal Affect: normal affect Attitude: cooperative Course Vital Signs Vital signs: Vital Signs Temperature 98.7 F 12/13/24 16:30 Pulse Rate 71 12/13/24 16:30 Respiratory Rate 18 12/13/24 16:30 Blood Pressure 146/100 H 12/13/24 16:30 Pulse Oximetry 100 12/13/24 16:30 Temperature 98.7 F 12/13/24 16:30 Pulse Rate 71 12/13/24 16:30 Respiratory Rate 18 12/13/24 16:30 Blood Pressure 147/96 H 12/13/24 18:15 Pulse Oximetry 100 12/13/24 18:16 MDM - Extremity Injury (Lower) MDM Narrative Medical decision making narrative: Pt squatted down and when she stood up she felt like her knee cap popped out. Pt is afraid to straighten leg. Pt given morphine and muscle relaxer. no fx or dislocation on x ray. some medial displacement of patella. leg straightened and pt comfortable. will place in knee immobilizer and ortho follow up. naprosyn for pain. off work 2 days. Discharge Plan Discharge Clinical Impression: Patellar derangement Patient Disposition: Home Condition: Improved Instructions: Antibiotic Form, Patellar Dislocation (ED) Patient Language: [place]se Prescriptions: New naproxen [Naprosyn] 500 mg tablet 500 mg PO BID Qty: 20 0RF No Action meclizine 25 mg tablet 25 mg PO TID PRN (Reason: dizziness) Qty: 20 0RF methocarbamol 1,000 mg tablet 1,000 mg PO TID 10 Days Qty: 30 0RF prednisone 20 mg tablet 40 mg PO DAILY 5 Days Qty: 10 0RF ibuprofen 400 mg tablet 400 mg PO Q6H PRN (Reason: pain) Qty: 30 0RF cefdinir 300 mg capsule 300 mg PO Q12H Qty: 20 0RF ibuprofen 800 mg tablet 800 mg PO TID PRN (Reason: pain) 7 Days Qty: 21 0RF acetaminophen 500 mg tablet 1,000 mg PO TID PRN (Reason: tania) 7 Days Qty: 42 0RF Zyrtec 10 mg Capsule 10 mg PO DAILY ibuprofen 800 mg tablet 800 mg PO TID PRN (Reason: pain) Qty: 20 0RF cyclobenzaprine 10 mg tablet 10 mg PO TID PRN (Reason: muscle spasm) Qty: 15 0RF ibuprofen 800 mg tablet 800 mg PO TID PRN (Reason: pain) Qty: 20 0RF Follow-up/Referrals: Robert Norwood MD [Physician] - UNKNOWN,DOCTOR [Non-Staff] - Stand Alone Forms: Work/School Release IP
== END 2024-12-13 18:55 | disposition home or self-care (01) ==
PROVIDERS: Emergency Provider Emergency Medicine
DX: M22.3X2 Other derangements of patella, left knee (principal)
CPT/HCPCS: 73564; 96374; 96375; 99284; J2270; J2405